=== PATIENT | male | born 1970 | race Caucasian/White ===

== ENCOUNTER 2022-11-26 10:42 | Outpatient (CLI) | payer OTHER, SELFPAY | END 2022-11-26 10:43 | disposition home or self-care (01) | PROVIDERS: Visit Provider Emergency Medicine | DX: Z00.00 Encounter for general adult medical examination without abnormal findings (principal); I10 Essential (primary) hypertension; R00.0 Tachycardia, unspecified; Z13.6 Encounter for screening for cardiovascular disorders; Z13.1 Encounter for screening for diabetes mellitus | CPT/HCPCS: 80053; 80061 ==